=== PATIENT | male | born 1985 | race Caucasian/White ===

== ENCOUNTER 2018-03-03 10:30 | Emergency (ER) | payer OTHER ==
[2018-03-03] MEDS ORDERED: OXYCODONE/APAP 5/325 TAB ONE (10:52)
[2018-03-03] MEDS ORDERED: OXYCODONE/APAP 5/325 TAB PO ONE (10:53)
--- NOTE | 2018-03-03 11:00 | EDPHY ---
General Time Seen by Provider: 03/03/18 10:52 Narrative: CHIEF COMPLAINT: Climbing fall, shoulder and elbow pain HISTORY OF PRESENT ILLNESS: Patient presents with complaints of left shoulder and elbow pain status post fall. 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 He says that he slipped, falling approximately 10 ft before his protection caught him. He states that he was then "swung into the wall," striking his left shoulder and elbow. He has significant pain there. He is able to be assisted down the wall and placed in a make shift sling. He has severe pain in the left shoulder and elbow but no numbness, tingling or weakness. He has no head strike or loss of consciousness and was wearing a helmet. No chest, back or abdominal pain. No lacerations or injuries elsewhere. No other associated complaints or modifying factors. Right-hand dominant ESTABLISHED ORTHOPEDIST: None locally REVIEW OF SYSTEMS: Ten systems reviewed and are negative unless otherwise noted in the HPI PAST MEDICAL HISTORY: Orthopedic injuries PAST SURGICAL HISTORY: No recent surgeries SOCIAL HISTORY: Lives in [place]. 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 In town for 2 more weeks FAMILY HISTORY: Noncontributory EXAMINATION General Appearance: Alert, no distress HEENT: Normocephalic, atraumatic. Pupils equal round reactive Neck: Supple nontender. No midline tenderness, crepitus, step-off or deformity. Cardiovascular: Pulses normal throughout. Brisk cap refill Respiratory: Lungs are clear in all lynn. No retractions or distress. Neurological: A&O, sensory symmetric, interossei strength is symmetric Skin: Warm and dry, no rash. Superficial abrasions to the left forearm. Extremities: Moderate tenderness to the left humeral head and left radial head anteriorly. Difficulty straightening the left elbow. Pain with pronation supination. No instability or step-off of the left humeral head. Range of motion of the shoulder difficult to test due to pain. Range of motion of the left wrist and fingers fully intact and symmetric to the right. Psychiatric: Mood and affect normal DIFFERENTIAL DIAGNOSES: Including but not limited to shoulder sprain, shoulder strain, shoulder dislocation, humeral fracture, radial head fracture, elbow sprain, with strain MDM: 11:00 a.m. Climbing fall with blunt trauma against the wall with pain in the left shoulder and elbow. Unable to fully straighten the left elbow with pain over the radial head. X-rays of the shoulder and elbow been ordered. He is neuro intact distally. Percocet has been administered. He is in no acute distress. 11:30 a.m. X-rays as read by me reveal no obvious findings. He does have point tenderness of the radial head, any has hesitation full extension. Thus I will place him in a posterior splint and sling. 11:55 a.m. X-rays have been read as negative for acute findings by Radiology. Given that he has difficulty fully straightening the left elbow, and tenderness over the radial head I will treat him for the possibility of occult radial head fracture. He will be placed in a posterior splint and sling. We discussed ice and elevation. We discussed anti-inflammatories. We discussed Percocet pain medication. I would like him to follow up with a local orthopedist prior to returning back to [place] as he will be here for 2 more weeks. We discussed ED precautions and he is discharged in stable condition. SUPERVISION: This patient was independently evaluated without direct involvement of or examination by the attending physician. ED Precautions: Worsening pain. Erythema, edema, cyanosis, pallor, paresthesia or anesthesia. - History Smoking Status: Never smoked - Objective Vital Signs: Initial Vital Signs Temperature (C) 99.3 F 03/03/18 10:39 Heart Rate 94 03/03/18 10:39 Respiratory Rate 18 03/03/18 10:39 Blood Pressure 144/93 H 03/03/18 10:39 O2 Sat (%) 96 03/03/18 10:39 O2 Delivery Mode Room Air Allergies/Adverse Reactions: No Known Allergies Allergy (Unverified 03/03/18 10:38) Home Medications: Medication Instructions Recorded Prilosec 03/03/18 oxyCODONE HCL/ACETAMINOPHEN 1 each PO Q4-6PRN PRN #17 tablet 03/03/18 [Percocet 5-325 mg Tablet] traZODone 03/03/18 Medications Given: Discontinued Medications Oxycodone/Acetaminophen (Percocet 5/325) 2 tab PO EDNOW ONE Stop: 03/03/18 10:54 Last Admin: 03/03/18 10:55 Dose: 2 tab Departure - Departure Disposition: Home, Routine, Self-Care Clinical Impression: Sprain of shoulder, left Qualifiers: Encounter type: initial encounter Shoulder sprain type: unspecified sprain Qualified Code(s): S43.402A - Unspecified sprain of left shoulder joint, initial encounter Sprain of elbow, left Qualifiers: Encounter type: initial encounter Qualified Code(s): S53.402A - Unspecified sprain of left elbow, initial encounter Condition: Good Instructions: Elbow Fracture (ED), Elbow Sprain (ED), Shoulder Sprain (ED) Additional Instructions: 1. Ice and elevation often 2. Anti-inflammatories [id number] as discussed as needed 3. Pain medication as prescribed as needed 4. Follow up with orthopedist here for definitive care or when you return home to [place]. 5. ED precautions as discussed Referrals: Clay Freeman MD [Medical Doctor] - As per Instructions Prescriptions: oxyCODONE HCL/ACETAMINOPHEN [Percocet 5-325 mg Tablet] 1 each PO Q4-6PRN PRN # 17 tablet PRN Reason: Pain, Breakthrough
[2018-03-03 12:15] VITALS: BP 115/78
== END 2018-03-03 12:15 | disposition home or self-care (01) ==
DX: S43.402A Unspecified sprain of left shoulder joint, initial encounter (principal); S53.402A Unspecified sprain of left elbow, initial encounter; W17.89XA Other fall from one level to another, initial encounter; Y99.8 Other external cause status; Y93.31 Activity, mountain climbing, rock climbing and wall climbing